=== PATIENT | female | born 1975 | race Caucasian/White ===

== ENCOUNTER 2016-07-05 12:26 | Day surgery (SDC) | END 2016-07-05 20:07 | disposition home or self-care (01) | DX: D27.0 Benign neoplasm of right ovary (principal); N80.1 Endometriosis of ovary | CPT/HCPCS: 58662; 85025; 86850; 86900; 86901; 88307; 93005; J0690; J1170; J1885; J2250; J2405; J2710; J2765; J2795 ==

== ENCOUNTER 2016-07-06 23:04 | Emergency (ER) | payer OTHER ==
[~2016-07-06] VITALS: Ht 157.5 cm; Wt 91.5 kg
[~2016-07-06 23:04] MED LIST: ATIVAN; VIT E
[2016-07-06 23:09] VITALS: Ht 157.5 cm; Wt 91.5 kg
[2016-07-07] MEDS ORDERED: morphine 4 MG/ML VIAL IV STA (01:55)
[2016-07-07] MEDS ORDERED: ONDANSETRON 4 MG INJ IV STA (01:55)
[2016-07-07] MEDS ORDERED: SOD CHLORIDE 0.9% 1,000 ML IV ONE (02:30)
[2016-07-07 02:37] LABS: ADD SCAN DIFF NO
[2016-07-07 02:38] LABS: BASOPHILS % 0.3 % (0.0-2.0); EOSINOPHILS # 0.2 10^3/ul (0.0-0.5); EOSINOPHILS % 2.8 % (0.0-7.0); HEMATOCRIT 36.4 % (37.0-47.0); HEMOGLOBIN 11.4 g/dl (12.0-16.0); LYMPHOCYTES # 2.8 10^3/ul (0.8-2.9); LYMPHOCYTES % 32.5 % (15.0-51.0); MEAN CORPUSCULAR HEMOGLOBIN 26.6 pg (29.0-33.0); MEAN CORPUSCULAR HGB CONC 31.3 g/dl (32.0-37.0); MEAN CORPUSCULAR VOLUME 84.8 fl (82.0-101.0); MEAN PLATELET VOLUME 9.7 fl (7.4-10.4); MONOCYTE # 1.1 10^3/ul (0.3-0.9); MONOCYTES % 12.1 % (0.0-11.0); NEUTROPHIL # 4.5 10^3/ul (1.6-7.5); PLATELET COUNT 346 10^3/UL (140-415); RED BLOOD COUNT 4.29 10^6/ul (4.20-5.40); RED CELL DISTRIBUTION WIDTH 13.8 % (11.5-14.5); WHITE BLOOD COUNT 8.7 10^3/ul (4.8-10.8)
[2016-07-07 02:41] LABS: ADD UMIC NO; URINE BILIRUBIN (Dip) NEGATIVE (NEGATIVE); URINE BLOOD (Dip) NEGATIVE (NEGATIVE); URINE COLOR LT. YELLOW (YELLOW); URINE GLUCOSE (Dip) NEGATIVE (NEGATIVE); URINE KETONES (Dip) NEGATIVE (NEGATIVE); URINE LEUKOCYTE ESTERASE (Dip) NEGATIVE (NEGATIVE); URINE NITRITE (Dip) NEGATIVE (NEGATIVE); URINE TOTAL PROTEIN (Dip) NEGATIVE (NEGATIVE); URINE UROBILINOGEN (Dip) 0.2 E.U./dL (0.1-1.0)
[2016-07-07 03:01] LABS: POTASSIUM 3.5 mmol/L (3.5-5.1)
[2016-07-07 03:03] LABS: ALBUMIN/GLOBULIN RATIO 1.25; BILIRUBIN,INDIRECT 0.6 mg/dl (0-1.1); BILIRUBIN,TOTAL 0.6 mg/dl (0.2-1.3); CREATININE 0.73 mg/dl (0.44-1.00); TOTAL PROTEIN 7.2 g/dl (6.1-8.1)
[2016-07-07 03:04] LABS: CALCIUM 8.9 mg/dl (8.4-10.2)
[2016-07-07] MEDS ORDERED: SOD CHLORIDE 0.9% 100 ML ONE (03:47)
[2016-07-07] MEDS ORDERED: IOHEXOL 300MG/ML 150 ML BTL ONE (03:47)
[2016-07-07] MEDS ORDERED: KETOROLAC 30 MG INJ IV STA (04:27)
--- NOTE | 2016-07-07 05:37 | RADRPT ---
PROCEDURE: CT ABDOMEN/PELVIS WITH CONTRAST CLINICAL INDICATION: 41-year-old female with abdominal pain. TECHNIQUE: The study was performed utilizing a [employer] VCT 64-slice CT scanner. Direct axia l sections were obtained through the abdomen and pelvis with the use of 100 cc of Omnipaque-300 golden onic intravenous contrast material. Sagittal and coronal reformations were obtained. One or more of the following dose reduction techniques were utilized: automated exposure control, adjustment of the mA and/or kV according to patient's size or use of iterative reconstruction technique. The images were reviewed on a PACS workstation. CTD/vol = 19.0 mGy; Total Exam DLP = 1077.3 mGy-cm. COMPARISON: None. FINDINGS: There is minimal bibasilar subsegmental atelectasis.. There is no evidence for significant pleural effusion. The liver has a normal size and contour without focal areas of abnormal density or contra st enhancement. No intrahepatic nor extrahepatic biliary ductal dilatation is seen. Is distended and contains multiple ovoid gallstones extending to the neck region. The distal common bile duct measu res approximately 5.0 mm. The pancreas is without areas of abnormal attenuation or contrast enhancem ent. This spleen is identified and has a normal size without abnormal density or contrast enhanceme nt. The adrenal glands are unremarkable. The kidneys are functional bilaterally without abnormal den sity. No hydroureteronephrosis nor nephroureterolithiasis is evident. The urinary bladder contains u rine. There is diffuse infiltration of the left mid abdominal wall and subcutaneous tissues with sub cutaneous gas noted with a defect within the left abdominal musculature. There is retained stool within the colon without gross bowel obstruction. Multiple diverticula seen within the descending a nd sigmoid colon without surrounding inflammatory changes. The appendix is visualized and is without edema or surrounding inflammatory reaction. The uterus has a lobulated appearance measuring approxi mately 11.1 x 5.8 x 6.7 cm. There is a partially collapsed right ovarian cyst measuring approximate ly 1.4 x 1.3 x 1.8 cm. There is mild pelvic free fluid. The aortoiliac vessels are without aneurysm al dilatation. The osseous structures are intact. IMPRESSION: 1. Cholelithiasis. 2. Diffuse infiltration of the left mid abdominal wall and subcutaneous tissue with subcutaneous ga s and defect within the left abdominal musculature consistent with recent surgery. 3. Retained stool without obstruction. 4. No CT evidence for appendicitis. 5. Descending and sigmoid colon diverticulosis. 6. Partially collapsed right ovarian cyst. 7. Enlarged lobular uterus. 8. Mild pelvic free fluid. CALL REPORT: A call report was made to [facility] Banks on July 07, 2016 at 05:35 a.m. .Dale Vang MD, MD Date Time Electronically viewed and signed by .Dale Vang MD, MD on 07/07/2016 05:37 .M/
[2016-07-07] MEDS ORDERED: LORA10TA3 PO (05:57)
[2016-07-07] MEDS ORDERED: FLUT9.9S NASAL (05:57)
--- NOTE | 2016-07-07 06:12 | ERD ---
ER Documentation Chief Complaint Date/Time DATE: 07/07/16 TIME: 06:04 Chief Complaint AP post op pain heterogenous mass removal HPI 41-year-old female presents to ED with chief complaint of abdominal pain post exploratory laparoscopic surgery yesterday. States that her pain increased in severity around 5 PM earlier today. She has been taking Tylenol and ibuprofen without relief, and took 1 Percocet 5 hours ago which provided some relief. She denies nausea, vomiting, shortness of breath, fever, and chills. She describes serosanguineous colored discharge from wound, no foul-smelling discharge or bleeding. She currently rates her pain 8 out of 10 in severity. ROS All systems reviewed and are negative except as per history of present illness. Medications Home Meds Active Scripts Loratadine* (Loratadine*) 10 Mg Tablet, 10 MG PO DAILY, #30 TAB Prov:Barbara Roberson PA-C 07/07/16 Fluticasone Propionate (Flonase Allergy Relief) 9.9 Ml [place].susp, 1 SPRAY NASAL BID, #1 BOTTLE TO EACH NOSTRIL Prov:Barbara Roberson PA-C 07/07/16 Reported Medications [Ativan] No Conflict Check 07/05/16 [Vit E] No Conflict Check 07/05/16 Discontinued Reported Medications Omeprazole* (Omeprazole*) 20 Mg Capsule.dr, 20 MG PO DAILY 10/05/12 Allergies Allergies: Coded Allergies: No Known Drug Allergies (Verified Allergy, Unknown, 10/05/12) PMhx/Soc History of Surgery: Yes ( 17 YEARS AGO, RIGHT OVARIAN MASS 07/05/16) Anesthesia Reaction: No Hx Neurological Disorder: No Hx Respiratory Disorders: No Hx Cardiac Disorders: No Hx Psychiatric Problems: No Hx Miscellaneous Medical Probl: No Hx Alcohol Use: No Hx Substance Use: No Hx Tobacco Use: No Smoking Status: Never smoker Physical Exam Vitals Vital Signs Date Time Temp Pulse Resp B/P Pulse Ox O2 Delivery O2 Flow Rate FiO2 07/06/16 23:09 98.9 91 18 137/64 98 Physical Exam Const: [] Head: Atraumatic Eyes: Normal Conjunctiva ENT: Normal External Ears, Nose and Mouth. Neck: Full range of motion..~ No meningismus. Resp: Clear to auscultation bilaterally Cardio: Regular rate and rhythm, no murmurs Abd: Soft, non tender, non distended. Normal bowel sounds Skin: No petechiae or rashes Back: No midline or flank tenderness Ext: No cyanosis, or edema Neur: Awake and alert Psych: Normal Mood and Affect Result Diagram: 07/07/1621807/07/169 Results 24 hrs Laboratory Tests Test 07/07/16 02:19 Alanine Aminotransferase (ALT/SGPT) 33IU/L Albumin 4.0g/dl Albumin/Globulin Ratio 1.25 Alkaline Phosphatase 73IU/L Anion Gap 19 Aspartate Amino Transf (AST/SGOT) 36IU/L Basophils # 0.010^3/ul Basophils % 0.3% Blood Urea Nitrogen 11mg/dl Calcium Level 8.9mg/dl Carbon Dioxide Level 25mmol/L Chloride Level 106mmol/L Creatinine 0.73mg/dl Direct Bilirubin 0.00mg/dl Eosinophils # 0.210^3/ul Eosinophils % 2.8% Globulin 3.20g/dl Glucose Level 98mg/dl Hematocrit 36.4% Hemoglobin 11.4g/dl Indirect Bilirubin 0.6mg/dl Lipase 78U/L Lymphocytes # 2.810^3/ul Lymphocytes % 32.5% Mean Corpuscular Hemoglobin 26.6pg Mean Corpuscular Hemoglobin Concent 31.3g/dl Mean Corpuscular Volume 84.8fl Mean Platelet Volume 9.7fl Monocytes # 1.110^3/ul Monocytes % 12.1% Neutrophils # 4.510^3/ul Neutrophils % 52.0% Nucleated Red Blood Cells # 0.010^3/ul Nucleated Red Blood Cells % 0.0/100WBC Platelet Count 48957^3/UL Potassium Level 3.5mmol/L Red Blood Count 4.2910^6/ul Red Cell Distribution Width 13.8% Sodium Level 146mmol/L Total Bilirubin 0.6mg/dl Total Protein 7.2g/dl Urine Bilirubin NEGATIVE Urine Clarity CLEAR Urine Color LT. YELLOW Urine Glucose NEGATIVE% Urine Hemoglobin NEGATIVE Urine Ketones NEGATIVE Urine Leukocyte Esterase NEGATIVE Urine Nitrite NEGATIVE Urine Specific Rebecca <=1.005 Urine Total Protein NEGATIVE Urine Urobilinogen 0.2 E.U./dL Urine pH 6.0 White Blood Count 8.710^3/ul Current Medications Medications (Trade) Dose Ordered Sig/Silvia Route PRN Reason Start Time Stop Time Status Last Admin Dose Admin Morphine Sulfate (morphine) 6 mg ONCE STAT IV 07/07/16 01:55 07/07/16 02:15 DC Ondansetron HCl 4 mg 4 mg ONCE STAT IV 07/07/16 01:55 07/07/16 02:15 DC Sodium Chloride (NS) 1,000 ml @ 1,000 mls/hr Q1H ONCE IV 07/07/16 02:30 07/07/16 03:29 DC 07/07/16 02:25 IV Flush 10 ml 10 ml STK-MED ONCE .ROUTE 07/07/16 03:47 07/07/16 03:48 DC 07/07/16 04:05 Sodium Chloride (NS) 100 ml @ ud STK-MED ONCE .ROUTE 07/07/16 03:47 07/07/16 03:48 DC 07/07/16 04:05 Iohexol (Omnipaque 300mg/ ml) 150 ml STK-MED ONCE .ROUTE 07/07/16 03:47 07/07/16 03:48 DC 07/07/16 04:06 Ketorolac Tromethamine (Toradol) 30 mg ONCE STAT IV 07/07/16 04:27 07/07/16 04:29 DC 07/07/16 04:38 Procedures/MDM Patient stated that she had increased pain since her exploratory laparoscopic surgery yesterday, during exam she had chills. However she denies fever. On examination of her wounds is no active bleeding or foul-smelling discharge, only serosanguineous discharge from wound over left lumbar region. The wound had mild surrounding erythema was mildly firm to palpation. I consulted my supervising physician Dr. Medina, suggested CT of the abdomen and basic lab work. Patient refused narcotic pain medication at this time, awaiting results prior to further management. CBC: No leukocytosis or anemia CMP: No severe electrolyte imbalance, normal kidney function, LFTs within normal limits Lipase: Within normal limits UA: No leukocyte esterase or nitrite, UTI and pyelonephritis unlikely POC : Negative CT abdomen and pelvis with contrast: IMPRESSION: 1. Cholelithiasis. 2. Diffuse infiltration of the left mid abdominal wall and subcutaneous tissue with subcutaneous gas and defect within the left abdominal musculature consistent with recent surgery. 3. Retained stool without obstruction. 4. No CT evidence for appendicitis. 5. Descending and sigmoid colon diverticulosis. 6. Partially collapsed right ovarian cyst. 7. Enlarged lobular uterus. 8. Mild pelvic free fluid. I explained to the patient the results of her workup, there are no signs of infection. Abnormal findings on CT exam are consistent with recent surgery. Other changes are chronic and likely not related to her pain currently. At this time low suspicion for cholecystitis, appendicitis, diverticulitis, bowel obstruction, bowel perforation, abscess, and sepsis. Patient continued to complain of pain, she was given 30 mg of IM Toradol. Patient reported relief of medication. She is advised to follow-up with her surgeon within the next 48 hours. This time patient stable for discharge and outpatient management. Departure Diagnosis: Primary Impression: Abdominal pain Abdominal location: left upper quadrant Qualified Code: R10.12 - Left upper quadrant pain Additional Impressions: Cholelithiases Cholelithiasis location: gallbladder Cholecystitis presence: without cholecystitis Biliary obstruction: without biliary obstruction Qualified Code : K80.20 - Calculus of gallbladder without cholecystitis without obstruction Diverticulosis Diverticulosis site: diverticulosis of large intestine Diverticulosis bleeding: diverticulosis without bleeding Qualified Code: K57.30 - Diverticulosis of large intestine without hemorrhage Nasal congestion Ruptured ovarian cyst Condition: Good Patient Instructions: Exploratory Laparotomy Additional Instructions: Llame al doctor MAANA y daryl lars SHANIKA PARA DENTRO DE 1-2 DINERO.Dgale a la secretaria que nosotros le instruimos hacer esta shanika.Avise o llame si schmidt condicin se empeora antes de la shanika. Regresa aqui si peor o no mejor. Barbara Roberson PA-C Jul 07, 2016 06:12
[2016-07-07 06:18] VITALS: BP 125/69; PULSE 89; RESP 18; TEMP 99.6
== END 2016-07-07 06:31 | disposition home or self-care (01) ==
LOC: FTE 23:04
DX: R10.12 Left upper quadrant pain (principal); K80.20 Calculus of gallbladder without cholecystitis without obstruction; K57.30 Diverticulosis of large intestine without perforation or abscess without bleeding; R09.81 Nasal congestion; N83.202 Unspecified ovarian cyst, left side
CPT/HCPCS: 74177; 80053; 81003; 83690; 85025; 96374; 99285; J1885; J7030; Q9967